=== PATIENT | male | born 1945 | race Caucasian/White ===

== ENCOUNTER 2023-04-02 15:59 | Inpatient (IN) | payer MEDICARE, BC ==
[~2023-04-02] VITALS: Ht 177.8 cm; Wt 60.3 kg
[2023-04-02] MEDS ORDERED: IV NORMAL SALINE 1000 ML BAG IV ONE (16:15)
[2023-04-02 17:07] LABS: BASOPHILS # (AUTO) 0.1 K/UL (0.0-0.2); BASOPHILS % (AUTO) 1.1 % (0.0-2.0); EOSINOPHILS # (AUTO) 0.1 K/uL (0.0-0.7); HEMATOCRIT 45.2 % (36.7-47.1); HEMOGLOBIN 15.4 g/dL (12.5-16.3); LYMPHOCYTES # (AUTO) 1.9 K/uL (0.8-4.8); LYMPHOCYTES % (AUTO) 25.7 % (20.5-51.5); MEAN CORPUSCULAR HEMOGLOBIN 32.7 uug (23.8-33.4); MEAN CORPUSCULAR HGB CONC 34 g/dL (32.5-36.3); MEAN CORPUSCULAR VOLUME 95.7 fL (73.0-96.2); MONOCYTES % (AUTO) 13.8 % (0.0-11.0); NEUTROPHILS # (AUTO) 4.4 K/uL (1.8-8.9); NEUTROPHILS % (AUTO) 58.4 % (38.5-71.5); PLATELET COUNT (AUTO) 259 K/uL (152-348); RED BLOOD CELL COUNT(AUTO) 4.72 MIL/uL (4.06-5.63); RED CELL DISTRIBUTION WIDTH 13.6 % (12.1-16.2); WHITE BLOOD COUNT (AUTO) 7.5 K/uL (3.6-10.2)
[2023-04-02 17:10] LABS: DIFFERENTIAL COMMENT 1
[2023-04-02 17:16] LABS: CALCIUM 9.8 mg/dL (8.5-10.1); CREATININE 0.7 mg/dL (0.6-1.3)
[2023-04-02 17:17] LABS: POTASSIUM 4.4 mmol/L (3.5-5.1)
[2023-04-02 17:22] LABS: ETHANOL < 3 MG/DL (0-10)
[2023-04-02 17:28] LABS: ALBUMIN 2.8 g/dL (3.4-5.0); BILIRUBIN,TOTAL 0.3 mg/dL (0.2-1.0); TOTAL PROTEIN, SERUM 6.8 g/dL (6.4-8.2)
[2023-04-02 20:00] LABS: *BLOOD, URINE 1+ (NEGATIVE); *CLARITY,URINE CLEAR (CLEAR); *COLOR,URINE YELLOW (YELLOW); *KETONES,URINE TRACE (NEGATIVE); *PROTEIN,URINE 1+ (NEGATIVE); *UROBILINOGEN,URINE 0.2 E.U./dl (NORMAL); LEUKOCYTE ESTERASE ,URINE 3+ (NEGATIVE); NITRITE, URINE NEGATIVE (NEGATIVE); PH,URINE 5.5 (5.0-8.0); UGLUCOSE NEGATIVE (NEGATIVE)
[2023-04-02 20:06] LABS: *BILIRUBIN,URIN 1+ (NEGATIVE)
[2023-04-02] MEDS ORDERED: REMEDY ESSENTIAL ZINC PASTE 113 GM TP PRN (20:15)
[2023-04-02] MEDS ORDERED: ONDANSETRON 4 MG/2 ML VIAL IV PRN (20:15)
[2023-04-02] MEDS ORDERED: ACETAMINOPHEN 325 MG TABLET PO PRN (20:15)
[2023-04-02 20:17] LABS: BACTERIA,URINE MANY /HPF (NONE SEEN); SQUAMOUS EPITHELIAL CELL,UR FEW /HPF (NONE SEEN); WBC,URINE TNTC /HPF (0-3)
[2023-04-02 20:20] LABS: *AMPHETAMINE, URINE NEGATIVE (NEGATIVE); *BARBITURATE, URINE NEGATIVE (NEGATIVE); *BENZODIAZEPINE, URINE NEGATIVE (NEGATIVE); *CANNABINOID, URINE NEGATIVE (NEGATIVE); *COCCAINE, URINE NEGATIVE (NEGATIVE); *OPIATE, URINE NEGATIVE (NEGATIVE); *PHENCYCLIDINE SCREEN,URINE NEGATIVE (NEGATIVE)
[2023-04-02 20:24] LABS: FENTANYL, URINE NEGATIVE (NEGATIVE)
[2023-04-02] MEDS ORDERED: CEFTRIAXONE 1 G in IV DEXTROSE 5% 50 ML IV ONE (21:30)
[2023-04-02 23:27] VITALS: BP 97/55; TEMP 97.6; O2SAT 96
[2023-04-03] MEDS: IV D5 1/2 NS 1000 ML 1,000 ML IV PRN (00:18)
[2023-04-03 05:25] VITALS: BP 136/69; TEMP 98.4; O2SAT 98
[2023-04-03 06:50] LABS: BASOPHILS % (AUTO) 0.5 % (0.0-2.0); EOSINOPHILS # (AUTO) 0.1 K/uL (0.0-0.7); EOSINOPHILS % (AUTO) 1.3 % (0.0-7.0); HEMATOCRIT 39.1 % (36.7-47.1); HEMOGLOBIN 13.1 g/dL (12.5-16.3); LYMPHOCYTES # (AUTO) 2.1 K/uL (0.8-4.8); LYMPHOCYTES % (AUTO) 31.5 % (20.5-51.5); MEAN CORPUSCULAR HEMOGLOBIN 31.7 uug (23.8-33.4); MEAN CORPUSCULAR HGB CONC 34 g/dL (32.5-36.3); MEAN CORPUSCULAR VOLUME 94.2 fL (73.0-96.2); MONOCYTES # (AUTO) 0.8 K/uL (0.1-1.30); NEUTROPHILS # (AUTO) 3.6 K/uL (1.8-8.9); NEUTROPHILS % (AUTO) 54.7 % (38.5-71.5); PLATELET COUNT (AUTO) 319 K/uL (152-348); RED BLOOD CELL COUNT(AUTO) 4.15 MIL/uL (4.06-5.63); RED CELL DISTRIBUTION WIDTH 13.8 % (12.1-16.2); WHITE BLOOD COUNT (AUTO) 6.5 K/uL (3.6-10.2)
[2023-04-03 07:06] LABS: DIFFERENTIAL COMMENT 1
[2023-04-03 07:27] LABS: ALANINE AMINOTRANSFERASE 26 U/L (16-63); ALBUMIN 2.5 g/dL (3.4-5.0); ALKALINE PHOSPHATASE 82 U/L (50-136); ASPARTATE AMINOTRANSFERASE 25 U/L (15-37); BILIRUBIN,TOTAL 0.3 mg/dL (0.2-1.0); CALCIUM 8.7 mg/dL (8.5-10.1); CARBON DIOXIDE 23 mmol/L (21-32); CHLORIDE 105 mmol/L (98-107); CREATININE 0.8 mg/dL (0.6-1.3); GLUCOSE 90 mg/dL (74-106); MAGNESIUM 1.7 mg/dL (1.8-2.4); PHOSPHOROUS 3.4 mg/dL (2.5-4.9); POTASSIUM 3.5 mmol/L (3.5-5.1); SODIUM SERUM 140 mmol/L (136-145); TOTAL PROTEIN, SERUM 6.1 g/dL (6.4-8.2); UREA NITROGEN, BLOOD 16 mg/dL (7-18)
[2023-04-03] MEDS ORDERED: MAGNESIUM OXIDE 400 MG TABLET PO ONE (11:30)
[2023-04-03 11:34] VITALS: BP 93/49; TEMP 98.7; O2SAT 98
[2023-04-03] MEDS: levETIRAcetam 500 MG TABLET PO SCH ×2 (13:14→20:29)
[2023-04-03 16:00] VITALS: BP 94/44; TEMP 99.3; O2SAT 96
[2023-04-03 20:45] VITALS: BP 102/54; TEMP 97.7; O2SAT 96
[2023-04-03] MEDS: CEFTRIAXONE 1 G in IV DEXTROSE 5% 50 ML IV SCH (21:29)
[2023-04-04 06:46] VITALS: BP 101/61; TEMP 98.4; O2SAT 95
[2023-04-04] MEDS: IV D5 1/2 NS 1000 ML 1,000 ML IV PRN ×2 (07:15→23:51)
[2023-04-04 08:12] LABS: CALCIUM 9.1 mg/dL (8.5-10.1); CARBON DIOXIDE 29 mmol/L (21-32); CHLORIDE 106 mmol/L (98-107); CREATININE 0.8 mg/dL (0.6-1.3); GLUCOSE 101 mg/dL (74-106); MAGNESIUM 1.9 mg/dL (1.8-2.4); POTASSIUM 3.9 mmol/L (3.5-5.1); SODIUM SERUM 142 mmol/L (136-145); UREA NITROGEN, BLOOD 13 mg/dL (7-18)
[2023-04-04] MEDS: levETIRAcetam 500 MG TABLET PO SCH ×2 (08:54→20:47)
[2023-04-04 11:24] VITALS: BP 98/58; TEMP 97.8; O2SAT 96
[2023-04-04] MEDS ORDERED: LEVE1000 PO (13:04)
[2023-04-04 15:44] VITALS: BP 90/49; TEMP 99.7; O2SAT 93
[2023-04-04 20:00] VITALS: BP 84/47; TEMP 99.4; O2SAT 96
[2023-04-04] MEDS: CEFTRIAXONE 1 G in IV DEXTROSE 5% 50 ML IV SCH (21:21)
[2023-04-05 04:00] VITALS: BP 119/61; TEMP 97.5; O2SAT 98
[2023-04-05] MEDS: levETIRAcetam 500 MG TABLET PO SCH ×2 (09:05→20:49)
[2023-04-05 11:47] VITALS: BP 105/61; TEMP 97.9; O2SAT 97
[2023-04-05] MEDS: IV D5 1/2 NS 1000 ML 1,000 ML IV PRN (14:35)
[2023-04-05 15:30] VITALS: BP 91/47; TEMP 97.8; O2SAT 98
[2023-04-05 20:00] VITALS: BP 95/55; TEMP 97.6; O2SAT 97
[2023-04-05] MEDS: CEFTRIAXONE 1 G in IV DEXTROSE 5% 50 ML IV SCH (20:37)
[2023-04-06 04:30] VITALS: BP 114/65; TEMP 98.2; O2SAT 97
[2023-04-06] MEDS: IV D5 1/2 NS 1000 ML 1,000 ML IV PRN (05:38)
[2023-04-06 09:21] VITALS: BP 101/56; TEMP 97.5; O2SAT 99
[2023-04-06] MEDS: levETIRAcetam 500 MG TABLET PO SCH (09:21)
[2023-04-06 11:56] VITALS: BP 100/54; TEMP 97.6; O2SAT 98
[2023-04-06] MEDS ORDERED: CEPH500T PO (12:38)
[2023-04-06 16:03] VITALS: BP 100/53; TEMP 98.5; O2SAT 96
== END 2023-04-06 17:00 | DRG 689 ==
LOC: ER 16:09 → MEDSURG3 21:47 → MED 04-05 15:58
PROVIDERS: ADMIT Internal Medicine; ATTEND Internal Medicine
DX: N39.0 Urinary tract infection, site not specified (principal); G93.41 Metabolic encephalopathy; E44.0 Moderate protein-calorie malnutrition; Z68.1 Body mass index [BMI] 19.9 or less, adult; B96.89 Other specified bacterial agents as the cause of diseases classified elsewhere; R62.7 Adult failure to thrive; G40.909 Epilepsy, unspecified, not intractable, without status epilepticus; Z79.899 Other long term (current) drug therapy; Z86.73 Personal history of transient ischemic attack (TIA), and cerebral infarction without residual deficits
CPT/HCPCS: 36415; 70450; 71045; 83605; 83735; 84100; 84484; 85025; 87040; A4606; A4663; A6209; A6213; G0378; G0480; J0696; J7040